=== PATIENT | male | born 1960 | race Caucasian/White ===

== ENCOUNTER 2021-11-01 16:44 | Inpatient (IN) | payer MEDICARE, MEDICAID ==
[~2021-11-01] VITALS: Ht 167.6 cm; Wt 120.7 kg
[2021-11-01 17:53] LABS: HEMOGLOBIN 16.3 gm/dl (14.0-17.5); RED BLOOD COUNT 5.15 M/UL (4.20-5.50); WHITE BLOOD COUNT 4.4 K/UL (4.5-11.0)
[2021-11-01 18:12] LABS: BUN/CREATININE RATIO 14 (0-10)
[2021-11-02] MEDS ORDERED: BREO ELLIPTA 11 EACH INH (02:25)
[2021-11-02] MEDS ORDERED: CLONAZEPAM1 MG PO (02:26)
[2021-11-02] MEDS ORDERED: CLOPIDOGREL75 MG PO (02:26)
[2021-11-02] MEDS ORDERED: GABAPENTIN600 MG PO (02:26)
[2021-11-02] MEDS ORDERED: IRBESARTAN150 MG PO (02:27)
[2021-11-02] MEDS ORDERED: METOPROLOL SUCC50 MG PO (02:27)
[2021-11-02] MEDS ORDERED: QUETIAPINE FUMA50 MG PO (02:28)
[2021-11-02 07:46] LABS: HEMOGLOBIN 17.1 gm/dl (14.0-17.5); RED BLOOD COUNT 5.19 M/UL (4.20-5.50); WHITE BLOOD COUNT 3.5 K/UL (4.5-11.0)
[2021-11-02 08:04] LABS: BUN/CREATININE RATIO 18 (0-10)
[2021-11-03 04:32] LABS: HEMOGLOBIN 16.2 gm/dl (14.0-17.5); RED BLOOD COUNT 5.06 M/UL (4.20-5.50)
[2021-11-03 04:47] LABS: BUN/CREATININE RATIO 21 (0-10)
[2021-11-04 03:40] LABS: HEMOGLOBIN 15.9 gm/dl (14.0-17.5); RED BLOOD COUNT 4.9 M/UL (4.20-5.50); WHITE BLOOD COUNT 5.5 K/UL (4.5-11.0)
[2021-11-04 04:17] LABS: BUN/CREATININE RATIO 29 (0-10)
[2021-11-05 03:19] LABS: HEMOGLOBIN 15.6 gm/dl (14.0-17.5); RED BLOOD COUNT 4.79 M/UL (4.20-5.50); WHITE BLOOD COUNT 4.9 K/UL (4.5-11.0)
[2021-11-05 03:43] LABS: BUN/CREATININE RATIO 28 (0-10)
[2021-11-06 02:38] LABS: HEMOGLOBIN 15.4 gm/dl (14.0-17.5); RED BLOOD COUNT 4.83 M/UL (4.20-5.50); WHITE BLOOD COUNT 4.5 K/UL (4.5-11.0)
[2021-11-06 03:07] LABS: BUN/CREATININE RATIO 28 (0-10)
[2021-11-07 08:14] LABS: HEMOGLOBIN 16.5 gm/dl (14.0-17.5); RED BLOOD COUNT 5.11 M/UL (4.20-5.50)
[2021-11-07 08:15] LABS: BUN/CREATININE RATIO 28 (0-10); WHITE BLOOD COUNT 6.2 K/UL (4.5-11.0)
[2021-11-07] MEDS ORDERED: PROVENTIL HFA6.7 GM INH (09:54)
[2021-11-07] MEDS ORDERED: MEDROL DOSEPAK 24 MG PO (09:54)
--- NOTE | 2021-11-07 10:05 | NUR ---
0955 Patient's 02 Sat 76% on room air. Patient does have oxygen at home and a portable tank in his room.
== END 2021-11-07 10:57 | disposition left against medical advice (07) | DRG 177 ==
LOC: ER1 16:44 → CDU 22:07 → M/S 22:07
PROVIDERS: Internal Medicine; Physician Assistant Medical; ADMIT Internal Medicine
PROC: 8E0ZXY6 Isolation (ICD-10-PCS; 2021-11-01)
PROC: XW033E5 Introduction of Remdesivir Anti-infective into Peripheral Vein, Percutaneous Approach, New Technology Group 5 (ICD-10-PCS; 2021-11-01)
PROC: 3E0333Z Introduction of Anti-inflammatory into Peripheral Vein, Percutaneous Approach (ICD-10-PCS; 2021-11-01)
PROC: 5A0945A Assistance with Respiratory Ventilation, 24-96 Consecutive Hours, High Flow/Velocity Cannula (ICD-10-PCS; principal; 2021-11-02)
DX: U07.1 COVID-19 (principal); J12.82 Pneumonia due to coronavirus disease 2019; J96.01 Acute respiratory failure with hypoxia; J44.0 Chronic obstructive pulmonary disease with (acute) lower respiratory infection; J44.1 Chronic obstructive pulmonary disease with (acute) exacerbation; Z68.41 Body mass index [BMI] 40.0-44.9, adult; E11.65 Type 2 diabetes mellitus with hyperglycemia; E66.01 Morbid (severe) obesity due to excess calories; D69.6 Thrombocytopenia, unspecified; I25.10 Atherosclerotic heart disease of native coronary artery without angina pectoris; F17.200 Nicotine dependence, unspecified, uncomplicated; I10 Essential (primary) hypertension; Z95.1 Presence of aortocoronary bypass graft; Z98.890 Other specified postprocedural states; I25.2 Old myocardial infarction; Z79.4 Long term (current) use of insulin
CPT/HCPCS: 36415; 36600; 71045; 80048; 80053; 82550; 82553; 82803; 82962; 83036; 83605; 83735; 83874; 83880; 84484; 85025; 85027; 86140; 87040; 93005; 94640; 94664; 94760; 96374; 96375; 99285; G0378; J0248; J1100; J1650; J1956; J2930; J7030; Q9967; U0002

== ENCOUNTER 2021-12-11 14:35 | Inpatient (IN) | payer MEDICARE ==
[~2021-12-11] VITALS: Ht 167.6 cm; Wt 110.1 kg
[~2021-12-11 14:35] MED LIST: BREO ELLIPTA 11 EACH INH; CLONAZEPAM1 MG PO; CLOPIDOGREL75 MG PO; GABAPENTIN600 MG PO; IRBESARTAN150 MG PO; MEDROL DOSEPAK 24 MG PO; METOPROLOL SUCC50 MG PO; PROVENTIL HFA6.7 GM INH; QUETIAPINE FUMA50 MG PO
[2021-12-11 15:05] LABS: HEMOGLOBIN 15.9 gm/dl (14.0-17.5); RED BLOOD COUNT 4.98 M/UL (4.20-5.50); WHITE BLOOD COUNT 10.7 K/UL (4.5-11.0)
[2021-12-11 16:04] LABS: BUN/CREATININE RATIO 21 (0-10)
[2021-12-11] MEDS ORDERED: FUROSEMIDE20 MG PO (17:48)
[2021-12-11] MEDS ORDERED: SPIRONOLACTONE25 MG PO (17:48)
[2021-12-11] MEDS ORDERED: ATORVASTATIN CA10 MG PO (17:48)
[2021-12-11] MEDS ORDERED: LISINOPRIL10 MG PO (17:49)
[2021-12-11] MEDS ORDERED: ASPIRIN EC81 MG PO (17:50)
[2021-12-12 02:24] LABS: HEMOGLOBIN 14.3 gm/dl (14.0-17.5); RED BLOOD COUNT 4.51 M/UL (4.20-5.50)
[2021-12-14 05:56] LABS: BUN/CREATININE RATIO 24 (0-10)
[2021-12-15 04:59] LABS: BUN/CREATININE RATIO 22 (0-10)
[2021-12-16 02:01] LABS: BUN/CREATININE RATIO 21 (0-10)
[2021-12-17 01:40] LABS: HEMOGLOBIN 14.4 gm/dl (14.0-17.5); RED BLOOD COUNT 4.63 M/UL (4.20-5.50); WHITE BLOOD COUNT 8.3 K/UL (4.5-11.0)
[2021-12-17 02:06] LABS: BUN/CREATININE RATIO 20 (0-10)
[2021-12-18 05:02] LABS: RED BLOOD COUNT 4.44 M/UL (4.20-5.50); WHITE BLOOD COUNT 6.9 K/UL (4.5-11.0)
[2021-12-18 05:24] LABS: BUN/CREATININE RATIO 19 (0-10)
--- NOTE | 2021-12-18 11:59 | NUR ---
PER DR HERNANDEZ, COVID ISOLATION IS NOT NECESSARY
[2021-12-19 02:27] LABS: BUN/CREATININE RATIO 20 (0-10)
--- NOTE | 2021-12-19 10:53 | NUR ---
12/19/21 1030 PATIENT REFUSING TO HAVE A IV STARTED, PATIENT IS CURRENTLY WITHOUT IV ACCESS. DR. HERNANDEZ NOTIFIED OF PATIENTS REFUSAL FOR IV ACCESS
[2021-12-20 03:13] LABS: RED BLOOD COUNT 4.79 M/UL (4.20-5.50); WHITE BLOOD COUNT 7.7 K/UL (4.5-11.0)
[2021-12-20 03:30] LABS: BUN/CREATININE RATIO 17 (0-10)
[2021-12-20] MEDS ORDERED: ACETAZOLAMIDE250 MG PO (12:28)
[2021-12-20] MEDS ORDERED: ELIQUIS 5 MG TAB5 MG PO (12:31)
[2021-12-20] MEDS ORDERED: ELIQUIS5 MG PO (12:31)
[2021-12-20] MEDS ORDERED: SANTYL OINT 3030 GM EXT (12:45)
[2021-12-20] MEDS ORDERED: ACETAZOLAMIDE500 MG PO (12:45)
== END 2021-12-20 13:03 | disposition left against medical advice (07) | DRG 193 ==
LOC: ER1 14:35 → CDU 17:16 → PROG CARE 17:16
PROVIDERS: Emergency Medicine; Internal Medicine Infectious Disease; ADMIT Internal Medicine
PROC: 3E0333Z Introduction of Anti-inflammatory into Peripheral Vein, Percutaneous Approach (ICD-10-PCS; 2021-12-11)
PROC: 5A0945A Assistance with Respiratory Ventilation, 24-96 Consecutive Hours, High Flow/Velocity Cannula (ICD-10-PCS; 2021-12-11)
PROC: B24BZZZ Ultrasonography of Heart with Aorta (ICD-10-PCS; principal; 2021-12-12)
PROC: 8E0ZXY6 Isolation (ICD-10-PCS; 2021-12-12)
PROC: 5A0955A Assistance with Respiratory Ventilation, Greater than 96 Consecutive Hours, High Flow/Velocity Cannula (ICD-10-PCS; 2021-12-14)
DX: J15.9 Unspecified bacterial pneumonia (principal); I26.99 Other pulmonary embolism without acute cor pulmonale; J96.21 Acute and chronic respiratory failure with hypoxia; I50.23 Acute on chronic systolic (congestive) heart failure; U07.1 COVID-19; J96.22 Acute and chronic respiratory failure with hypercapnia; J44.0 Chronic obstructive pulmonary disease with (acute) lower respiratory infection; J44.1 Chronic obstructive pulmonary disease with (acute) exacerbation; N17.9 Acute kidney failure, unspecified; E87.3 Alkalosis; I11.0 Hypertensive heart disease with heart failure; I25.10 Atherosclerotic heart disease of native coronary artery without angina pectoris; G62.9 Polyneuropathy, unspecified; E78.5 Hyperlipidemia, unspecified; F17.210 Nicotine dependence, cigarettes, uncomplicated; E66.01 Morbid (severe) obesity due to excess calories; D69.6 Thrombocytopenia, unspecified; L27.0 Generalized skin eruption due to drugs and medicaments taken internally; T50.1X5A Adverse effect of loop [high-ceiling] diuretics, initial encounter; R16.1 Splenomegaly, not elsewhere classified; I27.20 Pulmonary hypertension, unspecified; Z95.1 Presence of aortocoronary bypass graft; Z82.49 Family history of ischemic heart disease and other diseases of the circulatory system; Z83.3 Family history of diabetes mellitus; Z79.899 Other long term (current) drug therapy; Z79.82 Long term (current) use of aspirin; Z79.01 Long term (current) use of anticoagulants
CPT/HCPCS: ECHO; 0240U; 36415; 36600; 71045; 80048; 80053; 80202; 80307; 82550; 82553; 82803; 83605; 83735; 83880; 84484; 85025; 85610; 85652; 85730; 86140; 87040; 93005; 93306; 93970; 94640; 94664; 94760; 96374; 96375; 99285; J0692; J1100; J1120; J1940; J3370; J7070; Q0177; Q9967